=== PATIENT | male | born 1985 | race Caucasian/White ===

== ENCOUNTER 2016-11-07 21:45 | Emergency (ER) | payer MEDICAID ==
--- NOTE | 2016-11-07 22:03 | EDPHY ---
H & P Stated Complaint: Took 26 Cold anbd Flu tablets to get high this am. HPI/ROS: HPI CHIEF COMPLAINT: Unintentional overdose, "I did it to get high" HISTORY OF PRESENT ILLNESS: This patient very pleasant 31-year-old male significant past medical history for schizophrenia, presents to the emergency room by private vehicle after he took 26 Coricidin pills. Patient states that he took 26 of these between noon today and 2:00 p.m.. He currently feels high. He states he did not do this to harm himself just wanted to get high. 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 Denies ingestion of anything else except as prescribed medication and normal doses he tells me took 1 pill Wellbutrin around 7:30 p.m. and 1 pill amitriptyline around 7:30 p.m. he denies further ingestion of other medications or other substances. Currently tells me he feels high off the Coricidin. Past Medical History: Schizophrenia Past Surgical History: Denies Social History: Denies use of daily tobacco alcohol or drug Family History: Noncontributory ROS REVIEW OF SYSTEMS: A comprehensive 10 point review of systems is otherwise negative aside from elements mentioned in the history of present illness. Exam Constitutional triage nursing summary reviewed, vital signs reviewed, awake/ alert. Eyes normal conjunctivae and sclera, EOMI, PERRLA. HENT normal inspection, atraumatic, moist mucus membranes, no epistaxis, neck supple/ no meningismus, no raccoon eyes. Respiratory clear to auscultation bilaterally, normal breath sounds, no respiratory distress, no wheezing. Cardiovascular rate normal, regular rhythm, no murmur, no edema, distal pulses normal. Gastrointestinal soft, non-tender, no rebound, no guarding, normal bowel sounds, no distension, no pulsatile mass. Genitourinary no CVA tenderness. Musculoskeletal no midline vertebral tenderness, full range of motion, no calf swelling, no tenderness of extremities, no meningismus, good pulses, neurovascularly intact. Skin pink, warm, & dry, no rash, skin atraumatic. Neurologic awake, alert and oriented x 3, AAOx3, moves all 4 extremities equally, motor intact, sensory intact, CN II-XII intact, normal cerebellar, normal vision, normal speech. Psychiatric normal mood/affect. Heme/Lymph/Immune no lymphadenopathy. Differential Diagnosis: Includes but is not limited to in a particular order Coricidin overdose, Coricidin ingestion to get high, check for other ingestion of substances including Tylenol overdose, salicylate overdose, TCA overdose Medical Decision Making: plan for this patient had an IV established blood draw , EKG check basic blood work as well as Tylenol level and salicylate level alcohol level. Urine drug screen. Monitor on a research analyst. Re-evaluation: EKG interpretation by me on record in [employer] system. Impression time of EKG 2234, this is sinus rhythm rate of 88, and add the no acute ischemia is seen. No prolonged intervals. No signs of arrhythmia. 2310: Poison Control was consulted. Recommend watch for anticholinergic syndrome. Check for co injections Tylenol. Given reported ingestion of close to 10 to 22. hours ago and patient is not overtly hypertensive not tachycardic in showing no acute signs of anticholinergic syndrome, serotonin syndrome no signs of TCA overdose plan is to check Tylenol level of Tylenol level is normal and patient is acting normal without any overt vital sign abnormality I will allow him to be discharged. 2336: re-examination at this time patient is resting comfortably. No tachycardia no signs of acute intoxication specifically no signs of TCA overdose , no signs of Tylenol overdose, no evidence of serotonin syndrome or anticholinergic syndrome on exam. Vital signs are reviewed and normal. Patient feels fine with no focal medical complaint. He is agreeable for discharge. Is noted Tylenol level is negative. Time of ingestion was over 11 hours ago. This was not intentional harm himself. Does understand if he has any further questions or concerns or healing that he is going to harm himself or somebody else needs to immediately return to the emergency room. He tells me he did this to get high. Source: Patient - Personal History Current Tetanus/Diphtheria Vaccine: Unsure Current Tetanus Diphtheria and Acellular Pertussis (TDAP): Unsure - Medical/Surgical History Hx Asthma: No Hx Chronic Respiratory Disease: No Hx Diabetes: No Hx Cardiac Disease: No Hx Renal Disease: No Hx Cirrhosis: No Hx Alcoholism: No Hx HIV/AIDS: No Hx Splenectomy or Spleen Trauma: No Other PMH: Addiction issue-formaldeh, cough medicine, for years. - Social History Smoking Status: Light smoker Constitutional: Initial Vital Signs Temperature (C) 37.4 C 11/07/16 21:48 Heart Rate 94 11/07/16 21:48 Respiratory Rate 18 11/07/16 21:48 Blood Pressure 154/109 H 11/07/16 21:48 O2 Sat (%) 95 11/07/16 21:48 O2 Delivery Mode Room Air Allergies/Adverse Reactions: latex Allergy (Intermediate, Verified 11/07/16 21:53) Rash Home Medications: Medication Instructions Recorded Amitriptyline HCl 11/07/16 Takes Anti-Psychotic 11/07/16 Wellbutrin 150mg XL 11/07/16 Medical Decision Making - Data Points Laboratory Results: Laboratory Results 11/07/16 22:15 11/07/16 22:15 11/07/16 11/07/16 11/07/16 22:19 22:15 22:15 WBC 8.97 10^3/uL 10^3/uL (3.80-9.50) RBC 5.63 10^6/uL 10^6/uL (4.40-6.38) Hgb 17.6 g/dL H g/dL (13.7-17.5) Hct 50.5 % % (40.0-51.0) MCV 89.7 fL fL (81.5-99.8) MCH 31.3 pg pg (27.9-34.1) MCHC 34.9 g/dL g/dL (32.4-36.7) RDW 11.4 % L % (11.5-15.2) Plt Count 283 10^3/uL 10^3/uL (150-400) MPV 9.7 fL fL (8.7-11.7) Neut % (Auto) 67.0 % % (39.3-74.2) Lymph % (Auto) 25.8 % % (15.0-45.0) [place] % (Auto) 5.7 % % (4.5-13.0) Eos % (Auto) 0.6 % % (0.6-7.6) Baso % (Auto) 0.7 % % (0.3-1.7) Nucleat RBC Rel Count 0.0 % % (0.0-0.2) Absolute Neuts (auto) 6.02 10^3/uL 10^3/uL (1.70-6.50) Absolute Lymphs (auto) 2.31 10^3/uL 10^3/uL (1.00-3.00) Absolute Monos (auto) 0.51 10^3/uL 10^3/uL (0.30-0.80) Absolute Eos (auto) 0.05 10^3/uL 10^3/uL (0.03-0.40) Absolute Basos (auto) 0.06 10^3/uL 10^3/uL (0.02-0.10) Absolute Nucleated RBC 0.00 10^3/uL 10^3/uL (0-0.01) Immature Gran % 0.2 % % (0.0-1.1) Immature Gran # 0.02 10^3/uL 10^3/uL (0.00-0.10) Sodium 139 mEq/L mEq/L (134-144) Potassium 4.8 mEq/L mEq/L (3.5-5.2) Chloride 102 mEq/L mEq/L (97-110) Carbon Dioxide 26 mEq/l mEq/l (22-31) Anion Gap 11 mEq/L mEq/L (8-16) BUN 11 mg/dL mg/dL (7-23) Creatinine 0.8 mg/dL mg/dL (0.7-1.3) Estimated GFR > 60 Glucose 92 mg/dL mg/dL (70-100) Calcium 10.2 mg/dL mg/dL (8.5-10.4) Salicylates < 1.0 mg/dL L mg/dL (2.0-20.0) Urine Opiates Screen NEGATIVE (NEGATIVE) Acetaminophen < 10 mcg/mL L mcg/mL (10.0-30.0) Urine Barbiturates NEGATIVE (NEGATIVE) Ur Phencyclidine Scrn NEGATIVE (NEGATIVE) Ur Amphetamine Screen NEGATIVE (NEGATIVE) U Benzodiazepines Scrn NEGATIVE (NEGATIVE) Urine Cocaine Screen NEGATIVE (NEGATIVE) U Marijuana (THC) Screen NEGATIVE (NEGATIVE) Ethyl Alcohol < 10 mg/dL mg/dL (0-10) Departure - Departure Disposition: Home, Routine, Self-Care Clinical Impression: Drug overdose Qualifiers: Encounter type: initial encounter Injury intent: undetermined intent Qualified Code(s): T50.904A - Poisoning by unspecified drugs, medicaments and biological substances, undetermined, initial encounter Condition: Good Instructions: Adult Overdose (ED) Additional Instructions: 1. return emergency room immediately if you have any worsening symptoms questions or concerns. Referrals: NONE *PRIMARY CARE P,. [Primary Care Provider] - As per Instructions
--- NOTE | 2016-11-07 22:37 | CPEKG ---
Heart Rate: 88 RR Interval: 682 P-R Interval: 152 QRSD Interval: 90 QT Interval: 356 QTC Interval: 431 P [place]: 66 QRS [place]: -21 T Wave [place]: 31 EKG Severity - OTHERWISE NORMAL ECG - EKG Impression: SINUS RHYTHM EKG Impression: BORDERLINE LEFT AXIS DEVIATION Electronically Signed By: Daniel Jean 07-Nov-2016 23:04:11
[2016-11-07 22:42] LABS: % IMMATURE GRANULYOCYTES 0.2 % (0.0-1.1); ABSOLUTE IMMATURE GRANULOCYTES 0.02 10^3/uL (0.00-0.10); ADD DIFF? NO; ADD MORPH? NO; ADD SCAN? NO; ATYPICAL LYMPHOCYTE FLAG 0 (0-99); FRAGMENT RBC FLAG 0 (0-99); HEMATOCRIT 50.5 % (40.0-51.0); HEMOGLOBIN 17.6 g/dL (13.7-17.5); LEFT SHIFT FLG 0 (0-99); LIPEMIA HEMOLYSIS FLAG 90 (0-99); MEAN CELL HEMOGLOBIN 31.3 pg (27.9-34.1); MEAN CELL HEMOGLOBIN CONCENTR. 34.9 g/dL (32.4-36.7); MEAN CELL VOLUME 89.7 fL (81.5-99.8); MEAN PLATELET VOLUME 9.7 fL (8.7-11.7); PLATELET CLUMPS FLAG 0 (0-99); PLATELET COUNT 283 10^3/uL (150-400); RED BLOOD CELL COUNT 5.63 10^6/uL (4.40-6.38); RED CELL DISTRIBUTION WIDTH 11.4 % (11.5-15.2)
[2016-11-07 22:46] VITALS: RESP 12; O2SAT 96
[2016-11-07 22:53] LABS: ANION GAP 11 mEq/L (8-16); CALCIUM 10.2 mg/dL (8.5-10.4); CARBON DIOXIDE 26 mEq/l (22-31); CHLORIDE 102 mEq/L (97-110); CREATININE 0.8 mg/dL (0.7-1.3); ETHANOL SERUM < 10 mg/dL (0-10); GLOMERULAR FILTRATION RATE > 60; GLUCOSE 92 mg/dL (70-100); POTASSIUM 4.8 mEq/L (3.5-5.2); SALICYLATE < 1.0 mg/dL (2.0-20.0); SODIUM 139 mEq/L (134-144)
[2016-11-07 23:46] VITALS: BP 140/101; PULSE 95; TEMP 99.1
== END 2016-11-07 23:58 | disposition home or self-care (01) ==
DX: T39.1X4A Poisoning by 4-Aminophenol derivatives, undetermined, initial encounter (principal); F17.200 Nicotine dependence, unspecified, uncomplicated; Z91.040 Latex allergy status
CPT/HCPCS: 80305; G0480